=== PATIENT | female | born 1995 | race Caucasian/White ===

== ENCOUNTER 2023-10-31 00:08 | Emergency (ER) | payer BC ==
[~2023-10-31] VITALS: Ht 170.2 cm; Wt 63.5 kg
[~2023-10-31 00:08] MED LIST: CEPH500 PO
[2023-10-31 01:20] LABS: BASOPHILS ABSOLUTE AUTO 0.02 K/mm3 (0.00-0.23); BASOPHILS PERCENT AUTO 0 % (0-2); EOSINOPHILS ABSOLUTE AUTO 0.03 K/mm3 (0.00-0.68); EOSINOPHILS PERCENT AUTO 0 % (0-6); Hematocrit 34.5 % (33.0-51.0); Hemoglobin 11.5 g/dL (11.5-16.0); IMMATURE GRAN ABSOLUTE AUTO 0.05 K/mm3 (0.00-0.10); IMMATURE GRAN PERCENT AUTO 0 % (0-1); LYMPHOCYTES ABSOLUTE AUTO 0.85 K/mm3 (0.84-5.20); LYMPHOCYTES PERCENT AUTO 7 % (21-46); MONOCYTES ABSOLUTE AUTO 0.66 K/mm3 (0.16-1.47); MONOCYTES PERCENT AUTO 5 % (4-13); Mean Corpuscular HGB 28.2 pg (26.0-34.0); Mean Corpuscular HGB Conc 33.3 g/dL (31.5-36.5); Mean Corpuscular Volume 85 fL (80-100); Mean Platelet Volume 9.1 fL (9.1-12.4); NEUTROPHILS ABSOLUTE AUTO 10.65 K/mm3 (1.96-9.15); NEUTROPHILS PERCENT AUTO 87 % (41-73); Platelet Count 357 K/mm3 (150-400); RDW Coefficient Variation 13.2 % (11.7-14.2); RDW Standard Deviation 40.9 fL (35.1-46.3); Red Blood Cell Count 4.08 M/mm3 (3.80-5.20); White Blood Cell Count 12.26 K/mm3 (4.00-11.30)
[2023-10-31 01:35] LABS: Influenza A, PCR NEGATIVE (NEGATIVE); Influenza B, PCR NEGATIVE (NEGATIVE); Resp Syncytial Virus, PCR NEGATIVE (NEGATIVE); SARS-Cov-2 (COVID-19) PCR, MMC NEGATIVE (NEGATIVE)
[2023-10-31 01:37] LABS: Albumin, Blood 3.7 g/dL (3.4-5.0); Albumin/Globulin Ratio 0.9 (0.8-1.8); Bilirubin, Total 0.6 mg/dL (0.1-1.0); Bun/Creatinine Ratio 16.3 (12.0-20.0); Calcium, Blood 8.8 mg/dL (8.5-10.1); Creatinine, Blood 0.74 mg/dL (0.40-1.00); Globulin, Blood 4.3 g/dL (2.2-4.0)
[2023-10-31] MEDS ORDERED: NS 1,000 ML IV SCH (01:55)
[2023-10-31] MEDS ORDERED: Acetaminophen 500 MG Tab PO ONE (01:55)
[2023-10-31 02:01] LABS: Source, Urine Clean Catch
[2023-10-31 02:05] LABS: Bilirubin, Urine Neg (Neg); Blood, Urine 1+ (Neg); Glucose Qualitative, Urine Neg (Neg); Ketones, Urine 1+ (Neg); Leukocyte Esterase, Urine 2+ (Neg); Nitrite, Urine Pos (Neg); Protein, Urine 1+ (Neg); Urobilinogen, Urine NORM (Normal)
[2023-10-31 02:15] LABS: Appearance, Urine Hazy (Clear); Color, Urine Yellow (P-Yellow)
[2023-10-31 02:16] LABS: Bacteria Many /hpf; Red Blood Cells, Urine 0-2 /hpf (0-2); Squamous Epithelial Cells Many /hpf (Few)
[2023-10-31] MEDS ORDERED: Cephalexin Monohydrate 500 MG Cap PO ONE (02:35)
[2023-10-31 02:55] VITALS: BP 116/70
[2023-10-31] MEDS ORDERED: CEPH500 PO (02:55)
== END 2023-10-31 03:10 | disposition home or self-care (01) ==
LOC: ER 00:08
PROVIDERS: Emergency Medicine
DX: N39.0 Urinary tract infection, site not specified (principal); E86.0 Dehydration
CPT/HCPCS: 0241U; 80053; 81001; 81025; 85025; 87077; 87086; 87186; 93005; 93010; 96360; 99284-25; A9270; J7030

== ENCOUNTER → 2024-10-25 | Outpatient (CLI) | payer BC ==
[2024-10-25 16:01] LABS: BASOPHILS ABSOLUTE AUTO 0.02 K/mm3 (0.00-0.23); BASOPHILS PERCENT AUTO 0 % (0-2); EOSINOPHILS ABSOLUTE AUTO 0.08 K/mm3 (0.00-0.68); EOSINOPHILS PERCENT AUTO 1 % (0-6); Hematocrit 33.8 % (33.0-51.0); Hemoglobin 11.3 g/dL (11.5-16.0); IMMATURE GRAN ABSOLUTE AUTO 0.02 K/mm3 (0.00-0.10); IMMATURE GRAN PERCENT AUTO 0 % (0-1); LYMPHOCYTES ABSOLUTE AUTO 1.87 K/mm3 (0.84-5.20); LYMPHOCYTES PERCENT AUTO 25 % (21-46); MONOCYTES ABSOLUTE AUTO 0.53 K/mm3 (0.16-1.47); MONOCYTES PERCENT AUTO 7 % (4-13); Mean Corpuscular HGB 27.8 pg (26.0-34.0); Mean Corpuscular HGB Conc 33.4 g/dL (31.5-36.5); Mean Corpuscular Volume 83 fL (80-100); Mean Platelet Volume 8.5 fL (9.1-12.4); NEUTROPHILS ABSOLUTE AUTO 5.05 K/mm3 (1.96-9.15); NEUTROPHILS PERCENT AUTO 67 % (41-73); Platelet Count 528 K/mm3 (150-400); RDW Coefficient Variation 12.5 % (11.7-14.2); RDW Standard Deviation 38.1 fL (35.1-46.3); Red Blood Cell Count 4.07 M/mm3 (3.80-5.20); White Blood Cell Count 7.57 K/mm3 (4.00-11.30)
[2024-10-25 16:12] LABS: Albumin, Blood 3.8 g/dL (3.4-5.0); Albumin/Globulin Ratio 0.7 (0.8-1.8); Bilirubin, Total 0.3 mg/dL (0.1-1.0); Bun/Creatinine Ratio 11.8 (12.0-20.0); Calcium, Blood 9.4 mg/dL (8.5-10.1); Creatinine, Blood 0.68 mg/dL (0.40-1.00); Globulin, Blood 5.2 g/dL (2.2-4.0); Potassium, Blood 3.9 mmol/L (3.5-5.5)
== END ==
LOC: LAB SHORT 15:57 → LAB 15:57
PROVIDERS: Physician Assistant
DX: R10.9 Unspecified abdominal pain (principal)
CPT/HCPCS: 80053; 83690; 85025

== ENCOUNTER → 2024-11-14 | Outpatient (CLI) | payer BC ==
[2024-11-17 21:49] LABS: CALPROTECTIN,FECAL 1320 ug/g (<=49)
== END | disposition home or self-care (01) ==
LOC: LAB 11:30 → LAB SHORT 11:30
PROVIDERS: Physician Assistant Medical
DX: R93.3 Abnormal findings on diagnostic imaging of other parts of digestive tract (principal)
CPT/HCPCS: 83993

== ENCOUNTER 2024-11-24 08:54 | Day surgery (SDC) | payer BC ==
[~2024-11-24] VITALS: Ht 170.2 cm; Wt 65.2 kg
[2024-11-24] MEDS ORDERED: propofoL 50 ML IV ONE ×2 (09:17→11:10)
[2024-11-24] MEDS ORDERED: Lactated Ringer's 1,000 ML IV ONE ×2 (09:17→10:02)
[2024-11-24] MEDS ORDERED: ONDA4 (09:28)
--- NOTE | 2024-11-24 10:14 | NUR ---
11/24/24 1014 Ally Sorensen PT. VERBALIZES HAVING RIGHTSIDED ABD. PAIN RATING A "2".
[2024-11-24 11:34] VITALS: BP 118/77
== END 2024-11-24 11:41 | disposition home or self-care (01) ==
LOC: ORSCSDS 08:54
PROVIDERS: Internal Medicine Gastroenterology
PROC: 0DBE8ZX Excision of Large Intestine, Via Natural or Artificial Opening Endoscopic, Diagnostic (ICD-10-PCS; principal; 2024-11-24 10:30)
PROC: 0D7B8ZZ Dilation of Ileum, Via Natural or Artificial Opening Endoscopic (ICD-10-PCS; principal; 2024-11-24 10:30)
PROC: 0DBB8ZX Excision of Ileum, Via Natural or Artificial Opening Endoscopic, Diagnostic (ICD-10-PCS; principal; 2024-11-24 10:30)
DX: R93.3 Abnormal findings on diagnostic imaging of other parts of digestive tract (principal); K52.9 Noninfective gastroenteritis and colitis, unspecified; K63.3 Ulcer of intestine; K56.699 Other intestinal obstruction unspecified as to partial versus complete obstruction; K64.4 Residual hemorrhoidal skin tags; R19.4 Change in bowel habit; Z83.719 Family history of colon polyps, unspecified; R10.9 Unspecified abdominal pain
CPT/HCPCS: 88305; J2704; J7120

== ENCOUNTER 2024-12-22 00:59 | Day surgery (SDC) | payer BC ==
[~2024-12-22 00:59] MED LIST changes: +ONDA4
[2024-12-22] MEDS ORDERED: Infliximab-DYYB 350 MG in NS 250 ML IV SCH (06:00)
[2024-12-22] MEDS ORDERED: Acetaminophen 325 MG TABLET PO SCH (07:05)
[2024-12-22] MEDS ORDERED: DiphenhydrAMINE HCL 25 MG Cap PO SCH (07:05)
[2024-12-22] MEDS ORDERED: Hydrocortisone Sod Succinate 100 MG Vial IV SCH (07:05)
[2024-12-22] MEDS ORDERED: INFLECTRA100 MG IV (15:39)
[2024-12-22] MEDS ORDERED: MIRALAX17 GM PO (15:39)
[2024-12-22 15:41] VITALS: BP 122/72
[2024-12-22 16:37] VITALS: BP 112/90
[2024-12-22 16:52] VITALS: BP 120/75
[2024-12-22 17:09] VITALS: BP 98/85
[2024-12-22 17:26] VITALS: BP 113/87
== END 2024-12-22 18:31 | disposition home or self-care (01) ==
LOC: ATC 00:59
DX: K50.012 Crohn's disease of small intestine with intestinal obstruction (principal); Z79.899 Other long term (current) drug therapy
CPT/HCPCS: 96375; 96413; 96415; A9270; J1720; J7050; Q5103

== ENCOUNTER 2025-01-04 03:57 | Day surgery (SDC) | payer BC ==
[~2025-01-04] VITALS: Wt 67.2 kg
[~2025-01-04 03:57] MED LIST changes: +INFLECTRA100 MG IV; +MIRALAX17 GM PO
[2025-01-04] MEDS ORDERED: Infliximab-DYYB 350 MG in NS 250 ML IV SCH (06:00)
[2025-01-04] MEDS ORDERED: DiphenhydrAMINE HCL 25 MG Cap PO PRN (06:55)
[2025-01-04] MEDS ORDERED: Hydrocortisone Sod Succinate 100 MG Vial IV SCH (06:55)
[2025-01-04] MEDS ORDERED: Acetaminophen 325 MG TABLET PO PRN (06:55)
[2025-01-04 15:25] VITALS: BP 116/79
[2025-01-04 16:07] VITALS: BP 120/79
[2025-01-04 16:25] VITALS: BP 115/74
[2025-01-04 16:39] VITALS: BP 129/96
[2025-01-04 16:57] VITALS: BP 115/71
[2025-01-04 17:13] VITALS: BP 117/77
== END 2025-01-04 17:53 | disposition home or self-care (01) ==
LOC: ATC 03:57
DX: K50.012 Crohn's disease of small intestine with intestinal obstruction (principal); Z79.899 Other long term (current) drug therapy
CPT/HCPCS: 96375; 96413; 96415; A9270; J1720; J7050; Q5103

== ENCOUNTER 2025-03-16 02:34 | Day surgery (SDC) | payer BC ==
[2025-03-16] MEDS ORDERED: Infliximab-DYYB 350 MG in NS 250 ML IV SCH (06:00)
[2025-03-16 15:00] VITALS: BP 136/92
[2025-03-16] MEDS ORDERED: Prednisone10 MG PO (15:07)
[2025-03-16] MEDS ORDERED: OMEP20ER PO (15:07)
[2025-03-16] MEDS ORDERED: SUFLAVE POWDER1 EACH PO (15:07)
--- NOTE | 2025-03-16 15:17 | NUR ---
PT REFUSED BANADRYL. SHE IS ALSO TAKING STEROIDS BY MOUTH AT HOME,SO REFUSED ORAL.
== END 2025-03-16 17:21 | disposition home or self-care (01) ==
LOC: ATC 02:34
DX: K50.012 Crohn's disease of small intestine with intestinal obstruction (principal); Z79.899 Other long term (current) drug therapy
CPT/HCPCS: 96413; 96415; A9270; J7050; Q5103

== ENCOUNTER 2025-03-18 18:28 | Emergency (ER) | payer BC ==
[~2025-03-18] VITALS: Ht 170.2 cm; Wt 63.5 kg
[~2025-03-18 18:28] MED LIST changes: +OMEP20ER PO; +Prednisone10 MG PO; +SUFLAVE POWDER1 EACH PO
[2025-03-18] MEDS ORDERED: NS 1,000 ML IV ONE (18:44)
[2025-03-18] MEDS ORDERED: DiphenhydrAMINE HCl 50 MG/ML 1ML Vial IV ONE (18:45)
[2025-03-18] MEDS ORDERED: Metoclopramide HCl 5MG / ML 2ML Vial IV ONE (18:45)
[2025-03-18] MEDS ORDERED: NS 1,000 ML IV SCH ×2 (18:45→23:15)
[2025-03-18] MEDS ORDERED: Ketorolac Tromethamine 30mg Vial IV ONE (18:45)
[2025-03-18 18:52] LABS: BASOPHILS ABSOLUTE AUTO 0.03 K/mm3 (0.00-0.23); BASOPHILS PERCENT AUTO 0 % (0-2); EOSINOPHILS ABSOLUTE AUTO 0.00 K/mm3 (0.00-0.68); EOSINOPHILS PERCENT AUTO 0 % (0-6); Hematocrit 38.1 % (33.0-51.0); Hemoglobin 12.6 g/dL (11.5-16.0); IMMATURE GRAN ABSOLUTE AUTO 0.11 K/mm3 (0.00-0.10); IMMATURE GRAN PERCENT AUTO 1 % (0-1); LYMPHOCYTES ABSOLUTE AUTO 2.99 K/mm3 (0.84-5.20); LYMPHOCYTES PERCENT AUTO 12 % (21-46); MONOCYTES ABSOLUTE AUTO 1.26 K/mm3 (0.16-1.47); MONOCYTES PERCENT AUTO 5 % (4-13); Mean Corpuscular HGB Conc 33.1 g/dL (31.5-36.5); Mean Corpuscular Volume 84 fL (80-100); NEUTROPHILS ABSOLUTE AUTO 19.98 K/mm3 (1.96-9.15); NEUTROPHILS PERCENT AUTO 82 % (41-73); NRBC ABSOLUTE 0.00 K/mm3 (0.00-0.02); NRBC Auto 0.0 /100 WBC (0.0-0.2); Platelet Count 443 K/mm3 (150-400); RDW Coefficient Variation 14.0 % (11.7-14.2); RDW Standard Deviation 42.6 fL (35.1-46.3)
[2025-03-18 19:31] LABS: Alanine Aminotransfer (ALT/SGP 22.0 U/L (12-78); Albumin, Blood 3.8 g/dL (3.4-5.0); Albumin/Globulin Ratio 1.0 (0.8-1.8); Anion Gap 9.0 mmol/L (3-11); Aspartate Aminotrans (AST/SGOT 15.0 U/L (12-37); Bilirubin, Total 1.1 mg/dL (0.1-1.0); Blood Urea Nitrogen 13.0 mg/dL (8-24); CO2, Blood 28.0 mmol/L (21-32); Calcium, Blood 9.3 mg/dL (8.5-10.1); Chloride, Blood 99.0 mmol/L (98-108); Creatinine, Blood 0.75 mg/dL (0.40-1.00); Globulin, Blood 3.9 g/dL (2.2-4.0); Glucose, Blood 167.0 mg/dL (70-99); Magnesium, Blood 1.4 mg/dL (1.6-2.4); Potassium, Blood 4.2 mmol/L (3.5-5.5); Sodium, Blood 132.0 mmol/L (136-145); Total Protein, Blood 7.7 g/dL (6.4-8.2)
[2025-03-18 20:50] LABS: Source, Urine Clean Catch
[2025-03-18] MEDS ORDERED: Magnesium Sulf 2 GM/Water 50ML 50 ML IV ONE (20:55)
[2025-03-18 21:11] LABS: Bilirubin, Urine Neg (Neg); Color, Urine Yellow (P-Yellow); Glucose Qualitative, Urine Neg (Neg); Ketones, Urine Neg (Neg); Leukocyte Esterase, Urine Neg (Neg); Protein, Urine 1+ (Neg); Specific Gravity, Urine 1.010 (1.003-1.022); Urobilinogen, Urine NORM (Normal)
[2025-03-18] MEDS ORDERED: Morphine Sulfate 4 MG/1 ML Injection IV ONE (22:00)
[2025-03-18] MEDS ORDERED: Ondansetron HCl 2 MG / ML 2ML Vial ONE (22:10)
[2025-03-18 23:03] VITALS: BP 119/67
== END 2025-03-18 23:55 | disposition home or self-care (01) ==
LOC: ER 18:28
PROVIDERS: Student in an Organized Health Care Education/Training Program
DX: K56.600 Partial intestinal obstruction, unspecified as to cause (principal); K50.90 Crohn's disease, unspecified, without complications; D72.829 Elevated white blood cell count, unspecified; E83.42 Hypomagnesemia; Z79.52 Long term (current) use of systemic steroids; Z79.899 Other long term (current) drug therapy
CPT/HCPCS: 74177; 80053; 83605; 83690; 83735; 84703; 85025; 96361; 96374-59; 96375; 99285-25; J1200; J1885; J2270; J2405; J2765; J2919; J3475; J7030; Q9967

== ENCOUNTER 2025-05-11 02:50 | Day surgery (SDC) | payer BC ==
[2025-05-11] MEDS ORDERED: Infliximab-DYYB 350 MG in NS 250 ML IV SCH (06:00)
[2025-05-11 15:14] VITALS: BP 134/78
--- NOTE | 2025-05-11 17:46 | NUR ---
PT HAD REQUESTED TO ONLY TAKE THE TYLENOL PRE MEDICATION TODAY.
== END 2025-05-11 17:47 | disposition home or self-care (01) ==
LOC: ATC 02:50
DX: K50.012 Crohn's disease of small intestine with intestinal obstruction (principal); K59.00 Constipation, unspecified
CPT/HCPCS: 96413; 96415; A9270; J7050; Q5103

== ENCOUNTER 2025-06-17 05:54 | Day surgery (SDC) | payer BC ==
[~2025-06-17] VITALS: Ht 170.2 cm; Wt 64.4 kg
[2025-06-17] VITALS (24 sets, daily range): BP systolic 71–139; BP diastolic 50–87
--- NOTE | 2025-06-17 06:32 | NUR ---
Ambulatory in Day SurgeryPre-Op teaching done. Pt verbalizes understanding. History, Chart, Medications and Allergies reviewed before start of procedure.Patient confirms NPO status and agrees with scheduled surgery. Patient States Post-Procedure ride home has been arranged.
--- NOTE | 2025-06-17 07:27 | NUR ---
06/17/25 0727 Cristóbal Oviedo CONFIRMED AND REVIEWED H&P, MEDCICATIONS, ALLERGIES, MEDICAL HISTORY, RESPIRATORY HISTORY, VITAL SIGNS, 3-LEAD EKG, CONSENTS, AND PHYSICIAN ORDERS. PATIENT CONFIRMS NPO STATUS AND AGREES WITH SCHEDULED PROCEDURE. MONITOR INTACT WITH CONTINUOUS PULSE OXIMETRY, CAPNOGRAPHY, 3-LEAD EKG, INTERMITTENT BP. SUPPLEMENTAL O2 TO BE TITRATED THROUGHOUT PROCEDURE TO MAINTAIN O2 SATURATION ABOVE 90%. PATIENT DETERMINED TO BE ASA APPROPRIATE FOR PROPOFOL SEDATION PRIOR TO START OF PROCEDURE BY DR. COCHRAN
[2025-06-17] MEDS ORDERED: Ondansetron HCl 2 MG / ML 2ML Vial ONE (07:29)
--- NOTE | 2025-06-17 08:55 | NUR ---
Discharge instructions reviewed with patient. Patient verbalizes understanding. Copy given to patient to take home. Patient States Post-Procedure ride home has been arranged. Discharged via wheelchair to private car for ride home.
[2025-06-17] MEDS ORDERED: Ondansetron HCl 2 MG / ML 2ML Vial IV ONE (09:45)
== END 2025-06-17 08:45 | disposition home or self-care (01) ==
LOC: ORSCMMR 05:54 → ORD 08:00 → ORSCMMR 08:45
PROVIDERS: Internal Medicine Gastroenterology
PROC: 0DBE8ZX Excision of Large Intestine, Via Natural or Artificial Opening Endoscopic, Diagnostic (ICD-10-PCS; principal; 2025-06-17 07:30)
PROC: 0D7 Gastrointestinal System, Dilation (ICD-10-PCS; principal; 2025-06-17 07:30)
DX: K50.90 Crohn's disease, unspecified, without complications (principal); K52.89 Other specified noninfective gastroenteritis and colitis; K56.699 Other intestinal obstruction unspecified as to partial versus complete obstruction; K64.4 Residual hemorrhoidal skin tags; Z79.899 Other long term (current) drug therapy; K21.9 Gastro-esophageal reflux disease without esophagitis
CPT/HCPCS: 88305; C1726; J2405; J2704; J7120

== ENCOUNTER 2025-07-06 00:27 | Day surgery (SDC) | payer BC ==
[2025-07-06] MEDS ORDERED: Infliximab-DYYB 350 MG in NS 250 ML IV SCH (06:00)
[2025-07-06 15:11] VITALS: BP 124/90
== END 2025-07-06 17:29 | disposition home or self-care (01) ==
LOC: ATC 00:27
DX: K50.012 Crohn's disease of small intestine with intestinal obstruction (principal)
CPT/HCPCS: 96413; A9270; J7050; Q5103